=== PATIENT | male | born 1985 | race Caucasian/White ===

== ENCOUNTER 2021-12-27 19:33 | Emergency (ER) | payer MEDICAID, SELFPAY ==
[2021-12-27 19:45] VITALS: BP 102/60; PULSE 74; RESP 16; TEMP 36.7; O2SAT 99
--- NOTE | 2021-12-27 19:45 | ED.ANXIETY ---
HPI - Anxiety General Chief Complaint: Anxiety Stated Complaint: severe panic attack Time Seen by Provider: 12/27/21 19:45 Source: patient Mode of arrival: ambulatory Limitations: no limitations History of Present Illness HPI narrative: Mr. Lindsey is a 36-year-old male patient presenting to the clinic today with complaints of anxiety attacks. He reports he is out of his tizanidine medication. States that he has a note from his psychiatrist sent to his primary care provider's office as his psychiatrist is out on maternity leave. States that his primary care office has the note however they are not able to address it until tomorrow and he needs to work tomorrow. He is requesting a small prescription for some tizanidine to help with his anxiety attacks. Related Data Home Medications Medication Instructions Recorded Confirmed Lyrica 12/27/21 Valium 12/27/21 tizanidine 12/27/21 Allergies Allergy/AdvReac Type Severity Reaction Status Date / Time No Known Allergies Allergy Verified 12/27/21 19:39 Review of Systems Review of Systems: Pertinent positives per HPI. Patient denies any fever, chills, rash, headache, visual changes, dizziness, cough, runny nose, sore throat, shortness of breath, chest pain, palpitations, nausea, vomiting, diarrhea, constipation, abdominal pain, or any urinary issues. PMFSH Comments At the time of my signature, I reviewed and agree with the nursing past medical, surgical, social, and family history. There is no relevant family history pertinent to the patient complaint. Exam Narrative: General: Well-developed, well nourished, in no apparent distress Head: Normocephalic, atraumatic Eyes: Pupils equally round and reactive to light bilaterally, EOM intact, sclera and conjunctive clear, no discharge, lids normal Ears: TMs intact and clear, ear canals clear, no drainage, grossly hearing normal. Nose: Nares patent, no discharge, no inflammation, no sinus tenderness. Mouth: Oropharynx without lesions or masses, good dentition, MMM. Neck: Supple, trachea midline, no enlargement of anterior or posterior cervical nodes, no thyroid masses or goiter palpable. Cardio: Regular rate and rhythm, s1 and s2 normal, no murmur appreciated. Resp: Clear to auscultation bilaterally anteriorly and posteriorly, no rhonchi, rales, wheezing or rubs Course Course Emergency Course: Portions of this record may have been created with voice recognition software. Level of Care: Express Care Visit Vital Signs Vital signs: Vital signs reviewed MDM - Anxiety MDM Narrative Medical decision making narrative: At the time of visit patient is resting comfortably on the exam table. Tizanidine prescribed for 3 days and patient is to follow-up with his PCP as soon as possible. Supportive measures were discussed and sedation precautions were reviewed. Patient voiced understanding of discharge instructions and agrees to the treatment plan. Differential Diagnosis Differential diagnosis: Likely panic disorder and acute anxiety Discharge Plan Discharge Clinical Impression: Acute anxiety, Panic disorder Patient Disposition: Home, Self-Care Condition: Stable Instructions: Antibiotic Form, Anxiety (ED) Additional Instructions: Take tizanidine as prescribed Follow-up with your PCP as discussed Prescriptions: New tizanidine 4 mg tablet 4 mg PO Q6H PRN (Reason: anxiety) 3 Days Qty: 12 0RF No Action Lyrica Valium tizanidine Follow-up/Referrals: UNKNOWN,DOCTOR [Primary Care Provider] - Time of Disposition: 20:01 Quality NIHSS Nursing Documentation ED NIHSS nursing documentation: reviewed/agree
== END 2021-12-27 20:11 | disposition home or self-care (01) ==
PROVIDERS: Emergency Provider Nurse Practitioner Family
DX: F41.9 Anxiety disorder, unspecified (principal); F41.0 Panic disorder [episodic paroxysmal anxiety]
CPT/HCPCS: 99203; G0463

== ENCOUNTER 2023-08-01 15:42 | Emergency (ER) | payer OTHER, MEDICAID, SELFPAY ==
[2023-08-01 16:00] VITALS: BP 155/107; PULSE 97; RESP 16; TEMP 37.7; O2SAT 99
--- NOTE | 2023-08-01 16:12 | ED.HEATRA ---
HPI - Head Injury General Chief complaint: Back Pain/Injury Stated complaint: right elbow, knots back of head,decreased vision Time Seen by Provider: 08/01/23 15:45 Source: patient Mode of arrival: ambulatory Limitations: no limitations History of Present Illness HPI Narrative: Corbin is a 37-year-old male patient presenting to the clinic today with complaints of falling approximately 9 ft off a roof and landing onto concrete injuring his head and neck at 2pm this afternoon. States he has a knot to the back of his head with some abrasions but denies any LOC. states he laid on the ground for approximately 3 minutes and then got back up and finished his work and then he went home and took a shower after injury. Had loss of vision in his left eye but vision is improving gradually but still has loss of vision in the center of his eye. Also has abrasion to right elbow. He is complaining of neck pain currently when he is moving his neck. Does not really have headache but reports he has a high pain tolerance. Denies any use of blood thinners. His friend brought him into the clinic today when he found out that he fell off a roof and hit is head this evening. Cervical spine collar was applied. Related Data Home Medications Medication Instructions Recorded Confirmed bictegravir 50 mg-emtricitabine 1 tablet PO DIRECTED 08/01/23 08/01/23 200 mg-tenofovir alafenam 25 mg tablet (Biktarvy) diazepam 10 mg tablet 10 mg PO DIRECTED 08/01/23 08/01/23 methylphenidate HCl 20 mg tablet 20 mg PO DIRECTED 08/01/23 08/01/23 naltrexone 50 mg tablet 50 mg PO DIRECTED 08/01/23 08/01/23 pregabalin 100 mg capsule 100 mg PO DIRECTED 08/01/23 08/01/23 propranolol 10 mg tablet 10 mg PO DIRECTED 08/01/23 08/01/23 quetiapine 50 mg tablet 50 mg PO DIRECTED 08/01/23 08/01/23 rabeprazole 20 mg tablet,delayed 20 mg PO DIRECTED 08/01/23 08/01/23 release tizanidine 4 mg tablet 4 mg PO DIRECTED 08/01/23 08/01/23 trazodone 100 mg tablet 100 mg PO DIRECTED 08/01/23 08/01/23 Allergies Allergy/AdvReac Type Severity Reaction Status Date / Time No Known Allergies Allergy Verified 08/01/23 16:04 Review of Systems Review of Systems: Pertinent positives per HPI. Patient denies any fever, chills, rash, headache, visual changes, dizziness, cough, runny nose, sore throat, shortness of breath, chest pain, palpitations, nausea, vomiting, diarrhea, constipation, abdominal pain, or any urinary issues. PMFSH Comments At the time of my signature, I reviewed and agree with the nursing past medical, surgical, social, and family history. There is no relevant family history pertinent to the patient complaint. Exam Narrative: General: Well-developed, well nourished, in no apparent distress Head: Normocephalic, abrasions noted to the top of the scalp and over the occipital lobe Eyes: Pupils equally round and reactive to light bilaterally, EOM intact, sclera and conjunctive clear, no discharge, lids normal Ears: TMs intact and clear, ear canals clear, no drainage, grossly hearing normal. Nose: Nares patent, no discharge, no inflammation, no sinus tenderness. Mouth: Oropharynx without lesions or masses, good dentition, MMM. Tongue midline, even rise and fall of uvula Neck: Supple, trachea midline, no enlargement of anterior or posterior cervical nodes, no thyroid masses or goiter palpable. Cardio: Regular rate and rhythm, s1 and s2 normal, no murmur appreciated. Resp: Clear to auscultation bilaterally anteriorly and posteriorly, no rhonchi, rales, wheezing or rubs Musculoskeletal: No deformity, tender to palpation over the posterior neck, c-collar applied, grossly normal range of motion, muscle strength strong and equal, peripheral pulse strong, no edema, no cyanosis, normal gait and station, abrasion noted to the left posterior elbow Neuro: Alert and oriented x4 with increased rate speech, no focal deficits, cranial nerves I th
--- NOTE | 2023-08-01 16:45 | PC.NURSE ---
1605: CALL TO 911 FOR TRAUMA TRANSPORT TO [facility] ED. 1610: [facility] TO ROOM 1, C-COLLAR IN PLACE, [facility]ISTED EMS MOVING PT ONTO STRETCHER FOR TRANSPORT TO U.
== END 2023-08-01 16:16 | disposition short-term general hospital (02) ==
PROVIDERS: Emergency Provider Nurse Practitioner Family
DX: S09.90XA Unspecified injury of head, initial encounter (principal); W13.2XXA Fall from, out of or through roof, initial encounter; M54.2 Cervicalgia; S50.312A Abrasion of left elbow, initial encounter; H53.9 Unspecified visual disturbance
CPT/HCPCS: 99215; G0463; L0140